=== PATIENT | female | born 1945 | race Caucasian/White ===

== ENCOUNTER → 2017-09-15 | Outpatient (CLI) | payer MEDICARE, OTHER | END | disposition home or self-care (01) | LOC: LAB 09:40 | DX: M81.0 Age-related osteoporosis without current pathological fracture (principal); M25.50 Pain in unspecified joint; E20.9 Hypoparathyroidism, unspecified; C90.00 Multiple myeloma not having achieved remission | CPT/HCPCS: 36415; 82310; 83970 ==